=== PATIENT | male | born 1995 | race Two or more races ===

== ENCOUNTER 2025-07-29 23:18 | Emergency (ER) | payer SELFPAY ==
--- NOTE | ~2025-07-29 | CT_ITS ---
EXAM: CTA chest PE abdomen pel - 07/30/2025 2:34 CDT HISTORY: 30 years old Male with shortness of breath, elevated liver enzymes TECHNIQUE: Multidetector CT of the chest, abdomen and pelvis was performed with intravenous contrast Coronal and sagittal reformats were also provided for review. Automatic exposure control was used for this study. CONTRAST: 100 cc of Optiray 350 was used for this study COMPARISON: None available FINDINGS: CHEST: VISUALIZED LOWER NECK: Thyroid gland appears normal. No supraclavicular lymphadenopathy. AIRWAYS: Patent centrally. LUNGS and PLEURA: No evidence of consolidation/pulmonary contusion. No pneumothorax. MEDIASTINUM and MERCY: No evidence of mediastinal hematoma. No lymphadenopathy. HEART AND PERICARDIUM: Heart is normal in size. No pericardial effusion. CHEST WALL: No axillary lymphadenopathy. Chest wall appears normal. VASCULATURE: Thoracic aorta and pulmonary arteries are normal in caliber. ABDOMEN and PELVIS: LIVER: Within normal limits. GALLBLADDER: No calcified gallstones. BILE DUCTS: Normal caliber. SPLEEN: Within normal limits. PANCREAS: Within normal limits. ADRENAL GLANDS: Within normal limits. KIDNEYS and URETERS: No hydronephrosis or hydroureter. No evidence for nephroureterolithiasis. URINARY BLADDER: Within normal limits. STOMACH and BOWEL: Limited evaluation without adequate distention due to lack of oral contrast. Within the limits there appears to be no abnormal bowel wall thickening. No bowel obstruction. REPRODUCTIVE ORGANS: Within normal limits. MESENTERY/PERITONEAL CAVITY: No free fluid or pneumoperitoneum. LYMPH NODES: No abdominal or pelvic lymphadenopathy. ABDOMINAL WALL: Within normal limits. VASCULATURE: Within normal limits. MUSCULOSKELETAL, THORACIC AND LUMBAR SPINE: No acute fracture is identified in the chest, abdomen or pelvis. No fracture of the thoracic or the lumbar spine. IMPRESSION: No evidence of acute pathology in chest, abdomen and pelvis. Reviewed, dictated and finalized at location N.
--- NOTE | ~2025-07-29 | XR_ITS ---
EXAM/PROCEDURE: XR chest 2V - 07/29/2025 23:33 CDT HISTORY: 30 years old Male with chest pain left side TECHNIQUE: Two view(s) of the chest. COMPARISON: None available. FINDINGS: LUNGS/ PLEURA: No focal consolidation. No appreciable pneumothorax or large pleural effusion. HEART/ MEDIASTINUM: Heart appears normal in size. BONES: No acute osseous abnormality. OTHER: Visualized upper abdomen is unremarkable. IMPRESSION: No acute process. Reviewed, dictated and finalized at location N. IMPRESSION: No acute process.
--- NOTE | 2025-07-29 23:24 | ECG_ITS ---
Test Date: 2025-07-29 23:27:03 Measurements Intervals [place] Rate: 97 P: 65 NC: 148 QRS: 45 QRSD: 91 T: 34 QT: 329 QTc: 418 Interpretive Statements SINUS RHYTHM BASELINE ARTIFACT AFFECTS INTERPRETATION No previous ECG available for comparison Electronically Signed On 07-30-2025 12:33:39 CDT by Matias Corona M.D.
[2025-07-29 23:29] VITALS: BP 153/94; PULSE 91; RESP 18; TEMP 36.6; O2SAT 100
[2025-07-29 23:51] LABS: Hematocrit 51.9 % (42.0-52.0); Hemoglobin 18.8 g/dL (14.0-18.0); Immature Granulocyte Percent A 0.9 % (0-0.5); Lymphocytes Absolute Auto 2.34 K/mm3 (0.9-3.2); Mean Corpuscular HGB Conc 36.2 g/dl (32-36); Mean Corpuscular Hemoglobin 32.4 pg (26-34); Mean Corpuscular Volume 89.3 fl (80-100); Nucleated Red Blood Cells Absolute Auto 0.000 K/mm3 (0.0-0.012); Nucleated Red Blood Cells Perc 0.0 % (0.0-0.2); Platelet Count Result 292 k/mm3 (150-375); Red Blood Count 5.81 M/mm3 (4.6-6.20); White Blood Count 8.2 K/mm3 (4.5-10.0)
[2025-07-29 23:55] VITALS: O2SAT 100
[2025-07-30] VITALS (15 sets, daily range): PULSE 61–87; RESP 16–24; O2SAT 95–100
[2025-07-30 00:03] LABS: Alanine Aminotransferase 333 U/L (6-50); Albumin Level 5.2 g/dL (3.5-5.1); Alkaline Phosphatase 143 U/L (38-126); Anion Gap 12 mmol/L (4-12); Aspartate Amino Transferase 173 U/L (17-59); Bilirubin,Total 1.1 mg/dL (0.2-1.3); Blood Urea Nitrogen 10 mg/dL (9-20); Calcium 10.2 mg/dL (8.4-10.2); Carbon Dioxide 26 mmol/L (22-30); Chloride 100 mmol/L (98-107); Estimated CRCL calculation 125 ml/min; Estimated Glomerular Filt Rate > 60; Glucose 107 mg/dL (65-110); Lipase 70 U/L (23-300); Potassium 4.0 mmol/L (3.4-5.0); Sodium 138 mmol/L (137-145); Total Protein 9.5 g/dL (6.3-8.2)
--- NOTE | 2025-07-30 00:03 | ED.CHESTPAIN ---
HPI - Chest Pain General Chief Complaint: Chest Pain <Faith Layne APRN - Last Filed: 07/30/25 03:12> Stated Complaint: chest pain- cardiogenic shock 3 days ago <Faith Layne APRN - Last Filed: 07/30/25 03:12> Time Seen by Provider: 07/29/25 23:31 <Faith Layne APRN - Last Filed: 07/30/25 03:12> History of Present Illness HPI narrative: Patient is a 30-year-old male presents to the ER with chest pain. He reports he was driving here from [place] 5 days ago when he has 3 syncopal episodes. Patient reports he did not want to go to the emergency department at that time because he was scared. He endorses numbness and tingling in his feet and hands during that time. Patient reports his friends told him he had facial changes during the episodes. He endorses chest pain and shortness of breath at those times. Patient reports his symptoms subsided until he was at the gym earlier today and he started shaking. He endorses a history of alcohol use and chugged a beer at a gas station before coming into the ER. Patient reports he had febrile seizures as a baby but otherwise has no other medical history. He endorses appropriate water intake, but also endorses significant daily caffeine intake. Patient denies any recent fevers, urinary symptoms, cough, or upper respiratory symptoms. <Faith Layne APRN - Last Filed: 07/30/25 03:12> Review of Systems Review of Systems: All systems reviewed & are unremarkable except as noted in HPI and below <Faith Layne APRN - Last Filed: 07/30/25 03:12> Exam Narrative: GENERAL: Well appearing, well-nourished, non-toxic, in no acute distress. HEAD: Normocephalic, atraumatic. NECK: Supple. No adenopathy, no masses. RESPIRATORY: Airway patent, respirations nonlabored. Clear to auscultation bilaterally, no rales, rhonchi, wheezing. CARDIOVASCULAR: Regular rate and rhythm without murmurs, rubs, or gallops. Peripheral pulses 2+ and equal bilaterally. ABDOMINAL: Soft, nontender, nondistended, no hepatosplenomegaly. Normoactive BS. MUSCULOSKELETAL: Moves all extremities. Strength/ROM intact without gross deformities. SKIN: Warm, dry, normal color. No rashes. NEURO: A&O X3. Speech clear. Cranial nerves II-XII intact. No ataxic movements. PSYCHIATRIC: Appropriate mood and affect. Normal interaction. <Faith Layne, NINI - Last Filed: 07/30/25 03:12> Course LINEN ROOM WORKER/PA Physician Supervision This visit was performed by both a physician and an APC. For this patient encounter, I reviewed the LINEN ROOM WORKER or PA documentation, treatment plan, and medical decision making and had [id number] time with this patient. I performed all aspects of the MDM as documented. <Lola Velasquez MD - Last Filed: 07/30/25 04:53> Vital Signs Vital signs: Vital Signs Temperature 97.8 F 07/29/25 23:29 Pulse Rate 91 07/29/25 23:29 Respiratory Rate 18 07/29/25 23:29 Blood Pressure 153/94 H 07/29/25 23:29 Pulse Oximetry 100 07/29/25 23:29 Temperature 97.8 F 07/29/25 23:29 Pulse Rate 91 07/29/25 23:29 Respiratory Rate 18 07/29/25 23:29 Blood Pressure 153/94 H 07/29/25 23:29 Pulse Oximetry 100 07/29/25 23:55 <Faith Layne, RIGHT OF WAY SUPERVISOR - Last Filed: 07/30/25 03:12> Vital Signs Temperature 97.8 F 07/29/25 23:29 Pulse Rate 91 07/29/25 23:29 Respiratory Rate 18 07/29/25 23:29 Blood Pressure 153/94 H 07/29/25 23:29 Pulse Oximetry 100 07/29/25 23:29 Temperature 97.8 F 07/29/25 23:29 Pulse Rate 91 07/29/25 23:29 Respiratory Rate 18 07/29/25 23:29 Blood Pressure 153/94 H 07/29/25 23:29 Pulse Oximetry 100 07/29/25 23:55 <Lola Velasquez MD - Last Filed: 07/30/25 04:53> MDM - Chest Pain MDM Narrative Medical decision making narrative: Patient is a 30-year-old male presents to the ER with chest pain. He reports he was driving here from [place] 5 days ago when he has 3 syncopal episodes. Patient reports he did not want to go to the emergency department at that time because he was scared. He endorses numbness and tingling in his feet and hands during that time. Patient reports his friends told him he had facial changes during the episodes. He endorses chest pain and shortness of breath at those times. Patient reports his symptoms subsided until he was at the gym earlier today and he started shaking. He endorses a history of alcohol use and chugged a beer at a gas station before coming into the ER. Patient reports he had febrile seizures as a baby but otherwise has no other medical history. He endorses appropriate water intake, but also endorses significant daily caffeine intake. Patient denies any recent fevers, urinary symptoms, cough, or upper respiratory symptoms. Labs Ordered: CBC, CMP, troponin, ethanol, PTT, INR, lipase, BNP, TSH, UA, UDS Imaging Ordered: Chest x-ray, CT PE abdomen pelvis scan [id number] signed out to Dr. Velasquez pending CT scan results. <Faith Layne, RIGHT OF WAY SUPERVISOR - Last Filed: 07/30/25 03:12> Patient is a 30-year-old male presents to the ER with chest pain. He reports he was driving here from [place] 5 days ago when he has 3 syncopal episodes. Patient reports he did not want to go to the emergency department at that time because he was scared. He endorses numbness and tingling in his feet and hands during that time. Patient reports his friends told him he had facial changes during the episodes. He endorses chest pain and shortness of breath at those times. Patient reports his symptoms subsided until he was at the gym earlier today and he started shaking. He endorses a history of alcohol use and chugged a beer at a gas station before coming into the ER. Patient reports he had febrile seizures as a baby but otherwise has no other medical history. He endorses appropriate water intake, but also endorses significant daily caffeine intake. Patient denies any recent fevers, urinary symptoms, cough, or upper respiratory symptoms. Labs Ordered: CBC, CMP, troponin, ethanol, PTT, INR, lipase, BNP, TSH, UA, UDS Imaging Ordered: Chest x-ray, CT PE abdomen pelvis scan [id number] signed out to Dr. Velasquez pending CT scan results. Eva: Patient was signed out to me pending CT angio chest abdomen pelvis with IV contrast. CT scans were were obtained and include interpreted by me revealing no acute process. Patient informed these findings at bedside been instructed to follow up his primary care physician within the next 3-5 days and return to the ED if any new or worsening symptoms develop. Discharged home in stable condition. <Lola Velasquez MD - Last Filed: 07/30/25 04:53> Differential Diagnosis Differential diagnosis: Likely atypical chest pain, st elevation myocardial infarction, costochondritis and chest pain <Faith Layne APRN - Last Filed: 07/30/25 03:12> Lab Data Attestation: I reviewed the patient's lab results. <Faith Layne APRN - Last Filed: 07/30/25 03:12> Result diagrams: 07/29/25 23:43 07/29/25 23:43 <Faith Layne APRN - Last Filed: 07/30/25 03:12> Labs: Lab Results 07/29/25 07/30/25 07/30/25 Range/Units 23:43 01:03 03:18 WBC 8.2 (4.5-10.0) K/mm3 RBC 5.81 (4.6-6.20) M/mm3 Hgb 18.8 H (14.0-18.0) g/dL Hct 51.9 (42.0-52.0) % MCV 89.3 (80-100) fl MCH 32.4 (26-34) pg MCHC 36.2 H (32-36) g/dl RDW 12.5 (11.5-14.5) % Plt Count 292 (150-375) k/mm3 MPV 10.2 (7.4-10.4) fl Immature Gran % (Auto) 0.9 H (0-0.5) % Neut % (Auto) 59.1 (45.5-73.1) % Lymph % (Auto) 28.5 (18.3-44.2) % [place] % (Auto) 9.0 H (2.6-8.5) % Eos % (Auto) 1.9 (0-4.4) % Baso % (Auto) 0.6 (0.2-1.2) % Lymph # (Auto) 2.34 (0.9-3.2) K/mm3 [place] # (Auto) 0.7 H (0.1-0.6) K/mm3 Eos # (Auto) 0.2 (0-0.3) K/mm3 Baso # (Auto) 0.1 (0.0-0.1) K/mm3 Abs Immat Gran (auto) 0.07 H (0.00-0.031) K/mm3 Absolute Neuts (auto) 4.9 (1.3-6.7) K/mm3 Absolute Nucleated RBC 0.000 (0.0-0.012) K/mm3 Nucleated RBC % 0.0 (0.0-0.2) % PT 14.0 (11.1-14.7) Seconds INR 1.1 APTT 28.3 (22.3-36.8) Seconds Sodium 138 (137-145) mmol/L Potassium 4.0 (3.4-5.0) mmol/L Chloride 100 (98-107) mmol/L Carbon Dioxide 26 (22-30) mmol/L Anion Gap 12 (4-12) mmol/L BUN 10 (9-20) mg/dL Creatinine 0.78 (0.7-1.3) mg/dL Estim Creat Clear Calc 125 ml/min Estimated GFR > 60 (59 - ) Glucose 107 (65-110) mg/dL Calcium 10.2 (8.4-10.2) mg/dL Total Bilirubin 1.1 (0.2-1.3) mg/dL AST 173 H (17-59) U/L ALT 333 H (6-50) U/L Alkaline Phosphatase 143 H (38-126) U/L Troponin I < 0.012 (0.000-0.034) ng/mL NT-Pro-B Natriuret Pep 23 (19.9-100) pg/mL Total Protein 9.5 H (6.3-8.2) g/dL Albumin 5.2 H (3.5-5.1) g/dL Lipase 70 (23-300) U/L TSH (Reflex) 2.540 (0.465-4.68) uIU/mL Urine Color Yellow (Yellow) Urine Appearance Clear (Clear) Urine pH 7.0 (5.0-9.0) Ur Specific Richards > 1.045 H (1.001-1.035) Urine Protein Negative (Negative) mg/dL Urine Glucose (UA) Negative (Negative) mg/dL Urine Ketones Negative (Negative) mg/dL Ur Blood (Man) Negative (Negative) Urine Nitrate Negative (Negative) Urine Bilirubin Negative (Negative) Urine Urobilinogen 1.0 (<2.0) mg/dL Leukocyte Esterase Rfl Negative (Negative) KESHA/UL Urine Opiates Screen Negative (Negative) Urine Methadone Screen Negative (Negative) Ur Barbiturates Screen Negative (Negative) Ur Phencyclidine Scrn Negative (Negative) Ur Amphetamine Screen Negative (Negative) U Benzodiazepines Scrn Negative (Negative) Urine Cocaine Screen Negative (Negative) U Cannabinoids Screen Negative (Negative) Ethyl Alcohol < 10 (<10) mg/dL Influenza A (RT-PCR) Negative (Negative) Influenza B (RT-PCR) Negative (Negative) RSV (RT-PCR) Negative (Negative) SARS-CoV-2 RNA (RT-PCR) Negative (Negative) 07/30/25 Range/Units 03:19 WBC (4.5-10.0) K/mm3 RBC (4.6-6.20) M/mm3 Hgb (14.0-18.0) g/dL Hct (42.0-52.0) % MCV (80-100) fl MCH (26-34) pg MCHC (32-36) g/dl RDW (11.5-14.5) % Plt Count (150-375) k/mm3 MPV (7.4-10.4) fl Immature Gran % (Auto) (0-0.5) % Neut % (Auto) (45.5-73.1) % Lymph % (Auto) (18.3-44.2) % [place] % (Auto) (2.6-8.5) % Eos % (Auto) (0-4.4) % Baso % (Auto) (0.2-1.2) % Lymph # (Auto) (0.9-3.2) K/mm3 [place] # (Auto) (0.1-0.6) K/mm3 Eos # (Auto) (0-0.3) K/mm3 Baso # (Auto) (0.0-0.1) K/mm3 Abs Immat Gran (auto) (0.00-0.031) K/mm3 Absolute Neuts (auto) (1.3-6.7) K/mm3 Absolute Nucleated RBC (0.0-0.012) K/mm3 Nucleated RBC % (0.0-0.2) % PT (11.1-14.7) Seconds INR APTT (22.3-36.8) Seconds Sodium (137-145) mmol/L Potassium (3.4-5.0) mmol/L Chloride (98-107) mmol/L Carbon Dioxide (22-30) mmol/L Anion Gap (4-12) mmol/L BUN (9-20) mg/dL Creatinine (0.7-1.3) mg/dL Estim Creat Clear Calc ml/min Estimated GFR (59 - ) Glucose (65-110) mg/dL Calcium (8.4-10.2) mg/dL Total Bilirubin (0.2-1.3) mg/dL AST (17-59) U/L ALT (6-50) U/L Alkaline Phosphatase (38-126) U/L Troponin I < 0.012 (0.000-0.034) ng/mL NT-Pro-B Natriuret Pep (19.9-100) pg/mL Total Protein (6.3-8.2) g/dL Albumin (3.5-5.1) g/dL Lipase (23-300) U/L TSH (Reflex) (0.465-4.68) uIU/mL Urine Color (Yellow) Urine Appearance (Clear) Urine pH (5.0-9.0) Ur Specific Richards (1.001-1.035) Urine Protein (Negative) mg/dL Urine Glucose (UA) (Negative) mg/dL Urine Ketones (Negative) mg/dL Ur Blood (Man) (Negative) Urine Nitrate (Negative) Urine Bilirubin (Negative) Urine Urobilinogen (<2.0) mg/dL Leukocyte Esterase Rfl (Negative) KESHA/UL Urine Opiates Screen (Negative) Urine Methadone Screen (Negative) Ur Barbiturates Screen (Negative) Ur Phencyclidine Scrn (Negative) Ur Amphetamine Screen (Negative) U Benzodiazepines Scrn (Negative) Urine Cocaine Screen (Negative) U Cannabinoids Screen (Negative) Ethyl Alcohol (<10) mg/dL Influenza A (RT-PCR) (Negative) Influenza B (RT-PCR) (Negative) RSV (RT-PCR) (Negative) SARS-CoV-2 RNA (RT-PCR) (Negative) <Faith RuvalcabaMary Ann Layne, RIGHT OF WAY SUPERVISOR - Last Filed: 07/30/25 03:12> Lab Results 07/29/25 07/30/25 07/30/25 Range/Units 23:43 01:03 03:18 WBC 8.2 (4.5-10.0) K/mm3 RBC 5.81 (4.6-6.20) M/mm3 Hgb 18.8 H (14.0-18.0) g/dL Hct 51.9 (42.0-52.0) % MCV 89.3 (80-100) fl MCH 32.4 (26-34) pg MCHC 36.2 H (32-36) g/dl RDW 12.5 (11.5-14.5) % Plt Count 292 (150-375) k/mm3 MPV 10.2 (7.4-10.4) fl Immature Gran % (Auto) 0.9 H (0-0.5) % Neut % (Auto) 59.1 (45.5-73.1) % Lymph % (Auto) 28.5 (18.3-44.2) % [place] % (Auto) 9.0 H (2.6-8.5) % Eos % (Auto) 1.9 (0-4.4) % Baso % (Auto) 0.6 (0.2-1.2) % Lymph # (Auto) 2.34 (0.9-3.2) K/mm3 [place] # (Auto) 0.7 H (0.1-0.6) K/mm3 Eos # (Auto) 0.2 (0-0.3) K/mm3 Baso # (Auto) 0.1 (0.0-0.1) K/mm3 Abs Immat Gran (auto) 0.07 H (0.00-0.031) K/mm3 Absolute Neuts (auto) 4.9 (1.3-6.7) K/mm3 Absolute Nucleated RBC 0.000 (0.0-0.012) K/mm3 Nucleated RBC % 0.0 (0.0-0.2) % PT 14.0 (11.1-14.7) Seconds INR 1.1 APTT 28.3 (22.3-36.8) Seconds Sodium 138 (137-145) mmol/L Potassium 4.0 (3.4-5.0) mmol/L Chloride 100 (98-107) mmol/L Carbon Dioxide 26 (22-30) mmol/L Anion Gap 12 (4-12) mmol/L BUN 10 (9-20) mg/dL Creatinine 0.78 (0.7-1.3) mg/dL Estim Creat Clear Calc 125 ml/min Estimated GFR > 60 (59 - ) Glucose 107 (65-110) mg/dL Calcium 10.2 (8.4-10.2) mg/dL Total Bilirubin 1.1 (0.2-1.3) mg/dL AST 173 H (17-59) U/L ALT 333 H (6-50) U/L Alkaline Phosphatase 143 H (38-126) U/L Troponin I < 0.012 (0.000-0.034) ng/mL NT-Pro-B Natriuret Pep 23 (19.9-100) pg/mL Total Protein 9.5 H (6.3-8.2) g/dL Albumin 5.2 H (3.5-5.1) g/dL Lipase 70 (23-300) U/L TSH (Reflex) 2.540 (0.465-4.68) uIU/mL Urine Color Yellow (Yellow) Urine Appearance Clear (Clear) Urine pH 7.0 (5.0-9.0) Ur Specific Richards > 1.045 H (1.001-1.035) Urine Protein Negative (Negative) mg/dL Urine Glucose (UA) Negative (Negative) mg/dL Urine Ketones Negative (Negative) mg/dL Ur Blood (Man) Negative (Negative) Urine Nitrate Negative (Negative) Urine Bilirubin Negative (Negative) Urine Urobilinogen 1.0 (<2.0) mg/dL Leukocyte Esterase Rfl Negative (Negative) KESHA/UL Urine Opiates Screen Negative (Negative) Urine Methadone Screen Negative (Negative) Ur Barbiturates Screen Negative (Negative) Ur Phencyclidine Scrn Negative (Negative) Ur Amphetamine Screen Negative (Negative) U Benzodiazepines Scrn Negative (Negative) Urine Cocaine Screen Negative (Negative) U Cannabinoids Screen Negative (Negative) Ethyl Alcohol < 10 (<10) mg/dL Influenza A (RT-PCR) Negative (Negative) Influenza B (RT-PCR) Negative (Negative) RSV (RT-PCR) Negative (Negative) SARS-CoV-2 RNA (RT-PCR) Negative (Negative) 07/30/25 Range/Units 03:19 WBC (4.5-10.0) K/mm3 RBC (4.6-6.20) M/mm3 Hgb (14.0-18.0) g/dL Hct (42.0-52.0) % MCV (80-100) fl MCH (26-34) pg MCHC (32-36) g/dl RDW (11.5-14.5) % Plt Count (150-375) k/mm3 MPV (7.4-10.4) fl Immature Gran % (Auto) (0-0.5) % Neut % (Auto) (45.5-73.1) % Lymph % (Auto) (18.3-44.2) % [place] % (Auto) (2.6-8.5) % Eos % (Auto) (0-4.4) % Baso % (Auto) (0.2-1.2) % Lymph # (Auto) (0.9-3.2) K/mm3 [place] # (Auto) (0.1-0.6) K/mm3 Eos # (Auto) (0-0.3) K/mm3 Baso # (Auto) (0.0-0.1) K/mm3 Abs Immat Gran (auto) (0.00-0.031) K/mm3 Absolute Neuts (auto) (1.3-6.7) K/mm3 Absolute Nucleated RBC (0.0-0.012) K/mm3 Nucleated RBC % (0.0-0.2) % PT (11.1-14.7) Seconds INR APTT (22.3-36.8) Seconds Sodium (137-145) mmol/L Potassium (3.4-5.0) mmol/L Chloride (98-107) mmol/L Carbon Dioxide (22-30) mmol/L Anion Gap (4-12) mmol/L BUN (9-20) mg/dL Creatinine (0.7-1.3) mg/dL Estim Creat Clear Calc ml/min Estimated GFR (59 - ) Glucose (65-110) mg/dL Calcium (8.4-10.2) mg/dL Total Bilirubin (0.2-1.3) mg/dL AST (17-59) U/L ALT (6-50) U/L Alkaline Phosphatase (38-126) U/L Troponin I < 0.012 (0.000-0.034) ng/mL NT-Pro-B Natriuret Pep (19.9-100) pg/mL Total Protein (6.3-8.2) g/dL Albumin (3.5-5.1) g/dL Lipase (23-300) U/L TSH (Reflex) (0.465-4.68) uIU/mL Urine Color (Yellow) Urine Appearance (Clear) Urine pH (5.0-9.0) Ur Specific Richards (1.001-1.035) Urine Protein (Negative) mg/dL Urine Glucose (UA) (Negative) mg/dL Urine Ketones (Negative) mg/dL Ur Blood (Man) (Negative) Urine Nitrate (Negative) Urine Bilirubin (Negative) Urine Urobilinogen (<2.0) mg/dL Leukocyte Esterase Rfl (Negative) KESHA/UL Urine Opiates Screen (Negative) Urine Methadone Screen (Negative) Ur Barbiturates Screen (Negative) Ur Phencyclidine Scrn (Negative) Ur Amphetamine Screen (Negative) U Benzodiazepines Scrn (Negative) Urine Cocaine Screen (Negative) U Cannabinoids Screen (Negative) Ethyl Alcohol (<10) mg/dL Influenza A (RT-PCR) (Negative) Influenza B (RT-PCR) (Negative) RSV (RT-PCR) (Negative) SARS-CoV-2 RNA (RT-PCR) (Negative) <Lola Velasquez MD - Last Filed: 07/30/25 04:53> Discharge Plan Discharge Clinical Impression: Chest pain <Faith Layne APRN - Last Filed: 07/30/25 03:12> Patient Disposition: Home <Faith Layne APRN - Last Filed: 07/30/25 03:12> Condition: Improved <Faith Layne APRN - Last Filed: 07/30/25 03:12> Instructions: Antibiotic Form, Chest Pain (ED) <Faith Layne APRN - Last Filed: 07/30/25 03:12> Additional Instructions: Please follow-up with the family doctor within the next 3-5 days. Return emergency department if any new or worsening symptoms develop. <Faith Layne APRN - Last Filed: 07/30/25 03:12> Patient Language: Mosotho <Faith Layne APRN - Last Filed: 07/30/25 03:12> Follow-up/Referrals: Alvarez Pelaez DO [Physician, Family Practice] - 3 Days PHYSICIAN,PRECISION MACHINING INSTRUCTOR [Primary Care Provider, Internal Medicine] <Faith Layne APRN - Last Filed: 07/30/25 03:12> Time of Disposition: 04:51 <Faith Layne APRN - Last Filed: 07/30/25 03:12> 04:51 <Lola Velasquez MD - Last Filed: 07/30/25 04:53>
[2025-07-30 00:05] LABS: INR 1.1; Partial Thromboplastin Time 28.3 Seconds (22.3-36.8); Prothrombin Time 14.0 Seconds (11.1-14.7)
[2025-07-30 00:14] LABS: NT Pro B Type Natriuretic Pept 23 pg/mL (19.9-100); Troponin I < 0.012 ng/mL (0.000-0.034)
[2025-07-30 00:32] LABS: Thyroid Stimulating Hormone Reflex 2.540 uIU/mL (0.465-4.68)
[2025-07-30 01:42] LABS: Influenza A QL RT-PCR Negative (Negative); Influenza B QL RT-PCR Negative (Negative); RSV RNA, RT-PCR Negative (Negative); SARS-CoV-2 RNA PCR Negative (Negative)
[2025-07-30 03:28] LABS: Add Urine Microscopic? NO; Appearance Urine Clear (Clear); Glucose Urine UA Negative (Negative); Leukocyte Esterase Ur Negative LEU/UL (Negative); Nitrate Urine Negative (Negative); Specific Grav Ur > 1.045 (1.001-1.035)
[2025-07-30 03:46] LABS: Cannabinoid Screen Urine Negative (Negative)
[2025-07-30 03:52] LABS: Troponin I < 0.012 ng/mL (0.000-0.034)
== END 2025-07-30 05:45 | disposition home or self-care (01) ==
PROVIDERS: Registered Nurse; Emergency Provider Emergency Medicine
DX: R07.9 Chest pain, unspecified (principal); Z20.822 Contact with and (suspected) exposure to COVID-19
CPT/HCPCS: 36415; 71046; 71275; 74177; 80053; 80307; 81003; 82077; 83690; 83880; 84443; 84484; 85025; 85610; 85730; 87637; 93005; 99284; Q9967